=== PATIENT | male | born 1955 | race Caucasian/White ===

== ENCOUNTER 2017-05-25 10:17 | Emergency (ER) | payer OTHER ==
[~2017-05-25] VITALS: Ht 185.4 cm; Wt 86.2 kg
[~2017-05-25 10:17] MED LIST: ALEVE220 MG PO; CENTRUM SILVER1 EACH PO; CIPRO 500MG TA500 MG PO; CRESTOR20 MG PO; DILAUDID4 MG PO; FLAGYL500 M1 PO; INVOKANA300 MG PO; JANUVIA50 MG PO; LORTAB 7.5/3251 TAB PO; METFORMIN500 MG PO; ONGLYZA5 MG PO; TAMIFLU 75MG CA75 MG PO; VITAMIN D2000 I1 PO
--- NOTE | 2017-05-25 11:12 | Urgent Treatment Center Report ---
History of Present Issue Date/Time Seen by Provider 05/25/17 1054 Visit Reason Pt arrived:Walked Presenting Problem:PT STATES SORE THROAT, CONGESTION, AND DRAINAGE X1 WEEK. Location if Accident: Onset of symptoms date/time:/ or onset unknown for:MEDICAL HX UNKNOWN Have you (or family members/close friends) recently traveled outside the [place]? N If Yes, where/when: Have you had exposure to infectious disease within the past month? TB? Other? Specify: c/o sore throat, PND, nasal congestion "but really here for second opinion". Symptoms started while on vacation in [facility] approx 1 week ago. "Everyone on the trip was passing it around". Mild, mostly in morning. Started unknown decongestant recommended at a pharmacy there. Helped. Congestion started on 12 hour flight home. "still not bad". Sore throat "somewhat worse" last several days. Worse in the morning and at night. Better during the day and after eating or drinking. Cough drops have helped. "I really don't feel that bad and know I likely just have a cold". Schedule for brow lift tomorrow morning. Has a long list of medications he can NOT take prior to surgery. Isn't sure what to take to help symptoms and wants to know if surgery still ok. Reports pre-op nurse told him as long as fever free and lungs clear, he was ok to have surgery. pt denies any fever, aches, chills throughout course of illness. Source patient Exam Limitations no limitations ALLERGIES Coded Allergies: adhesive tape (01/30/16) metformin (01/30/16) Home Medications Reported Medications Rosuvastatin Calcium (Crestor) 20 MG PO DAILY Naproxen Sodium (Aleve) 2 TAB PO DAILY Multivit-Min/FA/Lycopene/Lut (Centrum Silver Tablet) 1 EACH PO DAILY Canagliflozin (Invokana) 300 MG PO DAILY Sitagliptin Phosphate (Januvia) 100 MG PO DAILY History Medical History General CAD? No Angina: No CA: No Hypertension? Yes Hyperlipidemia? Yes CHF? No DVT? No PE? No COPD? No Asthma? No Anemia? No GERD? Yes Gastric ulcers? No GI Bleed? No Hernia? No Thyroid Problems? No Hypothyroidism? No CVA? No Seizures? No Diabetes? Yes Insulin Dependent: No Insulin Pump: No Home FSBS? No Renal Insuffiency? No UTI? No Stones? Yes BPH? No GB Disease: Yes Nephritic Syndrome? No Asplenia? No Hepatitis? No Sickle Cell Disease? No Arthritis? No Migraines? No Cataracts? Yes Glaucoma? No MRSA? No HIV? No TB? No Anxiety? No Depression? No Cancer? Yes Site: SKIN More? 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 denies: ear pain, ear discharge, throat swelling. Respiratory cough (mild, intermittent, clear sptm), denies shortness of breath, denies wheezing Cardiovascular denies chest pain Gastrointestinal denies no symptoms reported Musculoskeletal see HPI Skin denies rash Psychiatric/Neurological headache (mild, intermittent, frontal) Physical Exam Vital Signs Vital Signs Date Time Temp Pulse Resp B/P Pulse O2 O2 Flow FiO2 Ox Delivery Rate 05/25 1042 98.0 73 18 126/81 94 General Appearance normal appearance, no apparent distress Eye Exam - bilateral eye normal exam Ear, Nose, Throat nasal congestion, thick clear PND, cobblestoning, pharyngeal erythema, tonsils surgically absent, shirley EACs and TMs normal Neck non-tender, supple Respiratory Status No: respiratory distress, productive cough, non productive cough. Lung Sounds anterior: lungs clear. posterior: lungs clear. bilateral: lungs clear. Cardiovascular regular rate/rhythm, no peripheral edema, no murmur Neurologic alert, oriented x 3 Skin normal color, warm/dry Lymphatic no adenopathy Medical Decision Making LABS/Meds/Orders Pt receiving controlled substance in ED? No Results/Orders Laboratory Tests 05/25/17 1038: Group A Strep Screen NOT DETECTED Orders Procedure Date/time Status [facility] STREP SCREEN 05/25 1046 Complete Departure Departure Time of Disposition 1109 Disposition DC Home or Self Care(routine) Clinical Impression Primary Impression: Upper respiratory virus Condition STABLE Referrals EDDIE APARICIO (Family) IMMEDIATELY for new or worsening symptoms OR no noticeable improvement over the next 72 hours. 911 for difficulty breathing or swallowing. Patient Instructions DI for Viral Upper Respiratory Infection -- Adult Additional Instructions * No sign of bacterial infection. Likely viral. Virus can take 7-14 days to run their course * Be sure to report all symptoms and medications again tomorrow morning during pre-op. It will be up to the surgeon and anesthesia if the proceed with surgery. You were fever free and lungs are clear. * Monitor Temp. FU if fevers begin at this point. * Encourage fluids, water, gatorade, powerade, pedialyte if infant/toddler/child * warm salt water gargles * warm fluids * sore throat lozenges * sleep elevated * humidifier/vaporizer * flonase 2 sprays each nostril daily but may take 2-3 days to notice improvement with it. * start claritin 10mg over the counter * * Your throat swab was sent for culture. Those results are typically sent to your primary care. Be sure to follow up in 2-3 days if no improvement so they can review those results and treat if necessary. If you don't have primary care, I recommend you get one but in the mean time, you will have to return to a walk in clinic. Discharge Counseling Counseled pt/family regarding diagnosis, test results, medications/RX, home care, follow up needs at 111
[2017-05-25 11:19] VITALS: BP 126/81
== END 2017-05-25 11:19 | disposition home or self-care (01) ==
LOC: UTC 10:17
DX: J06.9 Acute upper respiratory infection, unspecified (principal); I10 Essential (primary) hypertension; E78.5 Hyperlipidemia, unspecified; E11.9 Type 2 diabetes mellitus without complications; K21.9 Gastro-esophageal reflux disease without esophagitis; Z88.8 Allergy status to other drugs, medicaments and biological substances; Z91.048 Other nonmedicinal substance allergy status; Z79.84 Long term (current) use of oral hypoglycemic drugs; Z79.899 Other long term (current) drug therapy; Z85.828 Personal history of other malignant neoplasm of skin; Z87.442 Personal history of urinary calculi; Z83.3 Family history of diabetes mellitus; Z83.49 Family history of other endocrine, nutritional and metabolic diseases

== ENCOUNTER 2017-08-22 09:14 | Emergency (ER) | payer OTHER ==
[~2017-08-22] VITALS: Ht 185.4 cm; Wt 83.9 kg
--- OUTSIDE RECORDS SUMMARY | 2017-08-22 09:17 | External Medical Summary Rpt | CCD ---
Author Author , JOAQUIN Organization JOAQUIN Address Unknown Phone [email or web address] Care Team Providers Care Foreign Languages Professor Name Role Phone Mckinley Alicea III, MD, Mckinley Pierre III, MD Purpose Continuity of Care Document - 03-27-2013 through 2016 Problems Code Diagnosis DOS Provider Status 250.00 250.00 DIAB 03-27-2013 Mert [facility], [facility] Hospital II OR UNSPEC TYPE, NOT UNCNTRLD 883.0 883.0 OPEN 03-27-2013 Mert WOUND OF [facility] E849.8 E849.8 03-27-2013 Mert ACCIDENT IN [facility] E920.8 E920.8 03-27-2013 Mert ACC-CUTTING [facility] Allergies, Adverse Reactions, Alerts Type Allergy to substance Adverse Reaction to Substance Substance Reaction Severity NO KNOWN ALLERGIES Unknown Unknown Clinical Alert Notifications Alert Diabetes: no A1C in the last 6 months Diabetes: no eye exam in the last 365 days Diabetes: no influenza vaccine in the last 365 days Diabetes: no lipid panel in the last 365 days Diabetes: no urine protein screening in the last 365 days Medications Na ND Rx Da Fi Fi Am Da Di Ph RX Ph St me C No te ll ll ou ys ag ar # ys at rm s nt no ma ic us Or Da si cy ia de te s n re d AD 49 07 0 No AC 28 -1 EL 10 0- Lo 40 20 ng TD 01 13 er AP 0 Ac ti AL ve LI 00 07 0 No DO 40 -1 CA 94 0- Lo IN 27 20 ng E 90 13 er HC 2 L Ac 1% ti ve AL BA 45 07 0 No CI 80 -1 TR 20 0- Lo AC 06 20 ng IN 07 13 er 0 50 Ac 0 ti UN ve IT /G M OI NT MN T Vital Signs 03-27-2013 18:06 Name Value Interpretat Reference Comment ion Range Body 98.6 [degF] Temperature BP 93 mm[Hg] Diastolic BP Systolic 135 mm[Hg] Heart 61 /min Rate/Pulse O2% 97 % Respiratory 18 /min Rate 03-27-2013 17:00 Name Value Interpretat Reference Comment ion Range BP 66 mm[Hg] Diastolic BP Systolic 119 mm[Hg] Heart 72 /min Rate/Pulse O2% 100 % Respiratory 18 /min Rate Results Labs Lab Lab Date Result Refere Interp Status Commen Order Detail nces retati t Range on Streptococcus pyogenes Ag [Presence] in Unspecified specimen (05-25-2017 10:38) Strepto NOT NOTDETE complet coccus 017 [address]ED ed pyogene 10:38 D s Ag [Presen ce] in Unspeci fied specime n Procedures Procedure DOS Code Location Performer Comment CLOSURE 86.59 Mckinley SKIN & EJyothi SUBCUTANE Gabby OULiam [facility] III Encounters Encounter Start End Date Code Location Performer Type Date Emergency RASHID Pierre (ER) 3 16:25 3 18:10 [facility] Mckinley Flores
--- OUTSIDE RECORDS SUMMARY | 2017-08-22 09:17 | External Medical Summary Rpt | CCD ---
Author Author , JOAQUIN Organization JOAQUIN Address Unknown Phone [email or web address] Care Team Providers Care Beveller Operator Name Role Phone Mckinley Alicea III, MD, Mckinley Pierre III, MD Purpose Continuity of Care Document - 03-27-2013 through 2016 Problems Code Diagnosis DOS Provider Status 250.00 250.00 DIAB 03-27-2013 Mert [facility], [facility] Hospital II OR UNSPEC TYPE, NOT UNCNTRLD 883.0 883.0 OPEN 03-27-2013 Mert WOUND OF [facility] E849.8 E849.8 03-27-2013 Mert ACCIDENT IN [facility] E920.8 E920.8 03-27-2013 Mert ACC-CUTTING [facility] Allergies, Adverse Reactions, Alerts Type Allergy to [...] Mckinley SKIN & EJyothi SUBCUTANE Gabby OULiam [facility] III Encounters Encounter Start End Date Code Location Performer Type Date Emergency RASHID Pierre (ER) 3 16:25 3 18:10 [facility] Mckinley Flores
--- OUTSIDE RECORDS SUMMARY | 2017-08-22 09:18 | External Medical Summary Rpt | CCD ---
Author Author , JOAQUIN Organization JOAQUIN Address Unknown Phone [email or web address] Immunization Name Date Rout CVX Reac Dose Comm Prov Is Faci e tion ent ider Refu lity Give sed n Td 11-0 113 0.5 Hist [facility] No LEXC (mehrdad 4-20 mL oric DEQUAN DEQUAN lt), 16 al Info P-Fr rmat ee ion - Sour ce Unsp ecif ied Zost 11-0 121 0.5 Hist [facility] No LEXC er 4-20 mL oric DEQUAN DEQUAN 16 al Info rmat ion - Sour ce Unsp ecif ied Infl 10-1 150 0.5 Hist [facility] No LEXC uenz 7-20 mL oric DEQUAN DEQUAN a 16 al Quad Info Inj rmat ion - Sour ce Unsp ecif ied Infl 11-2 141 999 Hist [facility] No LEXC uenz 9-20 oric DEQUAN DEQUAN a, 13 al Seas Info onal rmat ion - Sour ce Unsp ecif ied
--- OUTSIDE RECORDS SUMMARY | 2017-08-22 09:18 | External Medical Summary Rpt ---
Author Author JOAQUIN Blankenship, BRITTANYJAMAR [employer] Organization [employer]IN [employer] Address Unknown Phone Unavailable Results Streptococcus pyogenes Ag [Presence] in Unspecified specimen Observa Value Referen Units Interpr Notes Date tion ce etation Range Strepto NOT NOTDETE No No LOT # Sep 7 coccus DETECTE CTED informa informa N/A EXP 2016 pyogene D tion in tion in DATE 10:38 s Ag source source N/A AM [Presen data data ce] in Unspeci fied specime n
--- OUTSIDE RECORDS SUMMARY | 2017-08-22 09:18 | External Medical Summary Rpt | CCD ---
Author Author , JOAQUIN Organization JOAQUIN Address Unknown Phone [email or web address] Immunization Name Date Rout CVX Reac Dose [...]
--- NOTE | 2017-08-22 10:48 | Urgent Treatment Center Report ---
History of Present Issue Date/Time Seen by Provider 08/22/17 1048 Visit Reason Pt arrived:Walked Presenting Problem:PT STATES HE WAS SEEN AT A CLINIC ON VACATION AND TESTED FOR STREP THAT WAS NEG. HE COMPLAINS OF SORE THROAT, WINDED, AND HAD A FEVER FOR A COUPLE OF DAYS Location if Accident: Onset of symptoms date/time:/ or onset unknown for:MEDICAL HX UNKNOWN Have you (or family members/close friends) recently traveled outside the [place]? N If Yes, where/when: Have you had exposure to infectious disease within the past month? TB? Other? Specify: c/o cough and shortness of breath with exertion. "cold" symptoms one week ago. Terrible sore throat. Seen at a walk in clinic and vacation. Strep negative. Sore throat resolved w/ unknown mouthrinse. Denies wheezing. Not sure about fevers. Feeling feverish at times. Spouse w/ similiar symptoms that developed into a sinus infection. Hx of DM. Not monitoring blood sugars. knows they "jolene rocket" with steroids so wants to avoid them at all cost. Source patient Exam Limitations no limitations ALLERGIES Coded Allergies: adhesive tape (01/30/16) metformin (01/30/16) Home Medications Reported Medications Rosuvastatin Calcium (Crestor) 20 MG PO DAILY Naproxen Sodium (Aleve) 2 TAB PO DAILY Multivit-Min/FA/Lycopene/Lut (Centrum Silver Tablet) 1 EACH PO DAILY Canagliflozin (Invokana) 300 MG PO DAILY Sitagliptin Phosphate (Januvia) 100 MG PO DAILY History Medical History General CAD? No Angina: No PR: No Hypertension? Yes Hyperlipidemia? Yes CHF? No DVT? No PE? No COPD? No Asthma? No Anemia? No GERD? Yes Gastric ulcers? No GI Bleed? No Hernia? No Thyroid Problems? No Hypothyroidism? No CVA? No Seizures? No Diabetes? Yes Insulin Dependent: No Insulin Pump: No Home FSBS? No Renal Insuffiency? No UTI? No Stones? Yes BPH? No GB Disease: Yes Nephritic Syndrome? No Asplenia? No Hepatitis? No Sickle Cell Disease? No Arthritis? No Migraines? No Cataracts? Yes Glaucoma? No MRSA? No HIV? No TB? No Anxiety? No Depression? No Cancer? Yes Site: SKIN More? 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 denies: ear pain. Respiratory cough (occasionally clear sputum) Cardiovascular denies chest pain Musculoskeletal denies joint pain Skin denies rash Psychiatric/Neurological denies headache Physical Exam Vital Signs Vital Signs Date Time Temp Pulse Resp B/P Pulse O2 O2 Flow FiO2 Ox Delivery Rate 08/22 1043 97.9 80 20 112/82 97 General Appearance normal appearance, no apparent distress Eye Exam - bilateral eye normal exam Ear, Nose, Throat normal ENT inspection, no sinus tenderness Neck non-tender, supple Respiratory Status Yes: trachea midline, chest symmetrical, non productive cough (worse with deep breath). No: respiratory distress, use of accessory muscles, pain on inspiration, pain on expiration. Lung Sounds anterior: lungs clear. posterior: lungs clear. bilateral: lungs clear, decreased breath sounds. Cardiovascular regular rate/rhythm, no peripheral edema, no murmur Neurologic alert, oriented x 3 Mental status normal mood/affect Skin normal color, warm/dry Lymphatic no adenopathy Medical Decision Making LABS/Meds/Orders Pt receiving controlled substance in ED? No Results/Orders Current Medication Orders Sig/Yue Start time Last Medication Dose Route Stop Time Status Admin Albuterol 2 PUFFS ONCE ONE 08/22 111 DC IH 08/22 111 Miscellaneous 1 UNIT ONCE ONE 08/22 1115 DC XX 08/22 1116 Albuterol 0 .STK-MED ONE 08/22 1108 DC IH Miscellaneous 0 .STK-MED ONE 08/22 1107 DC XX Albuterol/Ipratropium 0 .STK-MED ONE 08/22 1105 DC INH Orders Procedure Date/time Status RT REQUEST ALBUTEROL INHALER 08/22 1101 Active Progress [facility] Progress Notes Date 08/22/17 Time 1100 Comment Discussed the possibility of pneumonia and therefore, CXR. Pt declined. Rather save the cost if antibiotics will be administered regardless of CXR results. Agrees to follow up if symptoms worsen for a CXR at that time. Departure Departure Time of Disposition 1117 Disposition DC Home or Self Care(routine) Clinical Impression Primary Impression: Acute bronchitis Qualifiers: Bronchitis organism: unspecified organism Qualified Code: J20.9 - Acute bronchitis, unspecified Condition STABLE Referrals EDDIE APARICIO (Family) IMMEDIATELY for new or worsening symptoms OR no noticeable improvement over the next 48-72 hours. 911 for difficulty breathing. Patient Instructions DI for Acute Bronchitis Additional Instructions * start antibiotic today. Be sure to complete entire prescription even if feeling better. * Discussed CXR today. Pt agrees to return for new, worsening or persistant symptoms for CXR at that time. * Monitor Temp. Feeling feverish and having a fever are not the same. If fevers persistant, be sure to follow lup * humidifier/vaporizer/hot steamy shower * Inhaler every 4-6 hours as needed like we discussed and respiratory therapist showed you. Should help open airways and improve cough, wheezing, shortness of breath. * Mucinex during the day for your cough and cough suppressant only at night. Be sure to drink lots of water. Insurance may not cover a prescription of mucinex. Might be cheaper to get 400mg tablets and take 2 tablets morning, midday and evening all with lots of water. * no steorid today on account of your diabetes. Be sure to follow up if you become increasing short of breath or start wheezing Discharge Counseling Counseled pt/family regarding diagnosis, medications/RX, home care, follow up needs Prescriptions Current Visit Scripts Azithromycin (Zithromycin (Z-SHANNAN) 250MG Tab) 250 MG PO DAILY #6 TAB TAKE TWO (2) TABLETS ON DAY 1, THEN ONE (1) TABLET DAY #2 THRU #5 at 1128
[2017-08-22] MEDS ORDERED: ZITHROMAX Z PA250 MG PO (11:20)
[2017-08-22 11:21] VITALS: BP 112/82
== END 2017-08-22 11:21 | disposition home or self-care (01) ==
LOC: UTC 09:14
DX: J20.9 Acute bronchitis, unspecified (principal); K21.9 Gastro-esophageal reflux disease without esophagitis; I10 Essential (primary) hypertension